=== PATIENT | male | born 1950 | race Caucasian/White ===

== ENCOUNTER → 2017-10-29 | Outpatient (CLI) | payer MEDICARE ==
[~2017-10-29] MED LIST: LEVO88TA45 PO; OMEP-137 PO
== END ==
LOC: LAB 08:59
PROVIDERS: ATTEND Internal Medicine Cardiovascular Disease
DX: I50.23 Acute on chronic systolic (congestive) heart failure (principal)
CPT/HCPCS: 36415; 82310; 82374; 82435; 82565; 82947; 84132; 84295; 84520

== ENCOUNTER → 2018-01-25 | Outpatient (CLI) | payer MEDICARE ==
[2018-01-25 09:47] LABS: INR 4.04
== END ==
LOC: LAB 09:11
PROVIDERS: ATTEND Internal Medicine Interventional Cardiology
DX: I48.91 Unspecified atrial fibrillation (principal)
CPT/HCPCS: 36415; 85610

== ENCOUNTER → 2018-02-06 | Outpatient (CLI) | payer MEDICARE ==
[2018-02-06 08:59] LABS: INR 2.88
== END ==
LOC: LAB 08:36
PROVIDERS: ATTEND Internal Medicine Interventional Cardiology
DX: I48.91 Unspecified atrial fibrillation (principal); Z79.01 Long term (current) use of anticoagulants
CPT/HCPCS: 36415; 85610

== ENCOUNTER → 2018-02-15 | Outpatient (CLI) | payer MEDICARE ==
[2018-02-15 10:34] LABS: INR 2.48
== END ==
LOC: LAB 10:10
PROVIDERS: ATTEND Internal Medicine Interventional Cardiology
DX: I48.91 Unspecified atrial fibrillation (principal)
CPT/HCPCS: 36415; 85610

== ENCOUNTER → 2018-03-18 | Outpatient (CLI) | payer MEDICARE ==
[2018-03-18 09:44] LABS: INR 3.18
== END ==
LOC: LAB 09:17
PROVIDERS: ATTEND Internal Medicine Interventional Cardiology
DX: Z51.81 Encounter for therapeutic drug level monitoring (principal); Z79.01 Long term (current) use of anticoagulants; I48.91 Unspecified atrial fibrillation
CPT/HCPCS: 36415; 85610

== ENCOUNTER → 2018-08-16 | Outpatient (CLI) | payer MEDICARE | LOC: LAB 12:32 | PROVIDERS: ATTEND Internal Medicine Cardiovascular Disease | DX: I50.23 Acute on chronic systolic (congestive) heart failure (principal); I25.10 Atherosclerotic heart disease of native coronary artery without angina pectoris | CPT/HCPCS: 36415; 82310; 82374; 82435; 82465; 82565; 82947; 83718; 84132; 84295; 84478; 84520 ==

== ENCOUNTER → 2018-08-20 | Outpatient (REF) | payer MEDICARE ==
[2018-08-20 12:00] LABS: PLATELET COUNT, AUTOMATED 222 K/uL (150-450)
== END ==
LOC: ZZSTITCHES 11:43
PROVIDERS: ATTEND Physician Assistant
DX: R11.2 Nausea with vomiting, unspecified (principal); R10.84 Generalized abdominal pain
CPT/HCPCS: 82040; 82247; 82310; 82374; 82435; 82565; 82947; 84075; 84132; 84155; 84295; 84450; 84460; 84520; 85025

== ENCOUNTER 2018-08-22 10:16 | Inpatient (IN) | payer MEDICARE ==
[~2018-08-22] VITALS: Ht 175.3 cm; Wt 73.0 kg
--- NOTE | 2018-08-22 10:20 | ER Report ---
History and Physical Time Seen By MD: 10:17 HPI/ROS CHIEF COMPLAINT: Weakness, shortness breath HISTORY OF PRESENT ILLNESS: Patient is a 68-year-old male here with complaints of weakness, shortness of breath which she reports has been present for several years. Patient also complains of having intermittent hallucinations, intermittent abdominal pain, intermittent nausea, decreased appetite. Patient reports that his symptoms have not changed for several years including this morning. He does report that he is fed up with his current symptoms which prompted evaluation today. Patient is afebrile, hemodynamically stable at time of evaluation. REVIEW OF SYSTEMS: Constitutional: No fever, no chills. Eyes: No discharge. ENT: No sore throat. Cardiovascular: No chest pain, no palpitations. Respiratory: + cough, + shortness of breath. Gastrointestinal: + intermittent abdominal pain, + vomiting, + nausea Genitourinary: No hematuria. Musculoskeletal: No back pain. Skin: No rashes. Neurological: No headache. + generalized weakness Allergies: Coded Allergies: Penicillins (Verified Allergy, Severe, SWELLING, 10/09/16) codeine (Verified Allergy, Intermediate, HALLUCINATIONS, 10/09/16) Home Meds Reported Medications Metoprolol Tartrate (METOPROLOL TARTRATE) 25 Mg Tablet, 12.5 MG PO BID, TAB 08/22/18 Aspirin (ASPIR 81) 81 Mg Tablet.dr, 81 MG PO QDAY, TAB 08/22/18 Warfarin Sodium (WARFARIN SODIUM) 5 Mg Tablet, 2.5 MG PO DIRECTED, TAB 08/22/18 Warfarin Sodium (WARFARIN SODIUM) 5 Mg Tablet, 5 MG PO DIRECTED, TAB 08/22/18 Rosuvastatin Calcium (CRESTOR) 20 Mg Tablet, 20 MG PO QDAY 08/22/18 Ondansetron 4 Mg Odt (ONDANSETRON 4 MG ODT) 4 Mg Tab.rapdis, 4 MG ASDIRECTED PRN 08/22/18 Clopidogrel Bisulfate (CLOPIDOGREL) 75 Mg Tablet, 75 MG PO QDAY 08/22/18 Furosemide (FUROSEMIDE) 20 Mg Tablet, 20 MG PO QDAY 08/22/18 Levothyroxine Sodium (LEVOTHYROXINE SODIUM) 88 Mcg Tablet, 88 MCG PO QDAY 08/22/18 Discontinued Reported Medications Levothyroxine Sodium (LEVOTHYROXINE SODIUM) 100 Mcg Tablet, 88 MCG PO QDAY, TAB 08/22/18 Hx Smoking: No Smoking Status: Never Smoker Hx Substance Use Disorder: No Constitutional Vital Sign - Last 24 Hours 08/22/18 08/22/18 08/22/18 08/22/18 10:16 10:20 10:28 10:30 Temp 97.6 Pulse 79 83 Resp 22 13 B/P (MAP) 120/80 (93) 120/80 106/62 (77) Pulse Ox 85 88 O2 Delivery Room Air 08/22/18 08/22/18 08/22/18 08/22/18 10:46 11:00 11:51 12:00 Pulse 77 44 Resp 22 B/P (MAP) 100/73 (82) 113/71 (85) Pulse Ox 96 O2 Delivery Nasal Cannula Nasal Cannula O2 Flow Rate 2 2 Physical Exam General Appearance: The patient is alert, has no immediate need for airway protection and no signs of toxicity. Uncomfortable appearing Eyes: Pupils equal and round no pallor or injection. ENT, Mouth: Mucous membranes are moist. Respiratory: There are no retractions, lungs are clear to auscultation. Cardiovascular: Regular rate and rhythm. Gastrointestinal: Abdomen is soft and non tender, no masses, bowel sounds normal. Neurological: No focal neuro deficits Skin: Warm and dry, no rashes. Musculoskeletal: Neck is supple non tender. Extremities are nontender, nonswollen and have full range of motion. DIFFERENTIAL DIAGNOSIS: After history and physical exam differential diagnosis was considered for chest pain including but not limited to myocardial ischemia, pericarditis pulmonary embolus, chest wall pain, pleural inflammation and pulmonary infectious causes. Medical Decision Making Data Points Result Diagram: 08/22/18 1028 08/22/18 1028 Laboratory Hematology Test 08/22/18 10:28 White Blood Count 6.9 k/uL (4.5-11.0) Red Blood Count 4.01 M/uL (4.00-5.60) Hemoglobin 12.3 g/dL (14.0-18.0) L Hematocrit 37.3 % (42.0-52.0) L Mean Corpuscular Volume 93.0 fL (80.0-96.0) Mean Corpuscular Hemoglobin 30.6 pg (26.0-33.0) Mean Corpuscular Hemoglobin Concent 32.9 g/dL (32.0-36.0) Red Cell Distribution Width 16.8 % (11.5-14.5) H Platelet Count 207 K/uL (150-450) Mean Platelet Volume 10.2 fL (7.2-11.1) Neutrophils (%) (Auto) 79.2 % (39.4-72.5) H Lymphocytes (%) (Auto) 11.2 % (17.6-49.6) L Monocytes (%) (Auto) 9.1 % (4.1-12.4) Eosinophils (%) (Auto) 0.1 % (0.4-6.7) L Basophils (%) (Auto) 0.4 % (0.3-1.4) Nucleated RBC Relative Count (auto) 0.1 /100WBC Neutrophils # (Auto) 5.5 K/uL (2.0-7.4) Lymphocytes # (Auto) 0.8 K/uL (1.3-3.6) L Monocytes # (Auto) 0.6 K/uL (0.3-1.0) Eosinophils # (Auto) 0.0 K/uL (0.0-0.5) Basophils # (Auto) 0.0 K/uL (0.0-0.1) Nucleated RBC Absolute Count (auto) 0.01 K/uL Chemistry Test 08/22/18 00:00 08/22/18 10:28 Sodium Level 130 mmol/L (137-145) Potassium Level 4.6 mmol/L (3.5-5.0) Chloride Level 96 mmol/L (98-107) Carbon Dioxide Level 18 mmol/L (22-30) Blood Urea Nitrogen 35 mg/dl (9-21) Creatinine 2.00 mg/dl (0.66-1.25) Glomerular Filtration Rate Calc 33.3 Random Glucose 111 mg/dl (75-110) Lactate 4.2 mmol/L (0.7-2.1) Calcium Level 9.2 mg/dl (8.4-10.2) Total Bilirubin 6.0 mg/dl (0.2-1.3) Aspartate Amino Transf (AST/SGOT) > 750 U/L (0-35) Alanine Aminotransferase (ALT/SGPT) 944 U/L (0-56) Alkaline Phosphatase 80 U/L (0-126) Ammonia < 9 UMOL/L (9-33) Troponin I 0.086 ng/ml B-Type Natriuretic Peptide 1850 pg/ml (0-100) Total Protein 6.2 g/dl (6.3-8.2) Albumin 3.6 g/dl (3.5-5.0) Lipase 59 U/L (23-300) Thyroid Stimulating Hormone (TSH) 8.75 uIU/ml (0.46-4.68) Serology Test 08/22/18 10:28 Coagulation Test 08/22/18 10:28 Prothrombin Time 54.6 seconds (12.0-14.4) Prothromb Time International Ratio 5.89 Activated Partial Thromboplast Time 56 seconds (23-35) EKG/Imaging Imaging CT ABDOMEN PELVIS W/O CON HISTORY: abd pain TECHNIQUE: Axial images acquired through the abdomen/pelvis. Coronal and sagittal reformatting also performed. No IV contrast administered. One of the following dose optimization techniques was utilized in the performance of this exam: Automated exposure control; adjustment of the mA and/or kV according to the patient's size; or use of an iterative reconstruction technique. Specific details can be referenced in the facility's radiology CT exam operational policy. COMPARISON: Comparison CTA chest 10/09/2016 FINDINGS: Visualized lung bases: Negative. Hepatobiliary: Normal liver. There is either high density sludge or a large 2.5 cm stone filling the lumen of the gallbladder. Gallbladder wall is thickened measuring 7 mm diameter. No evidence of ductal dilatation. Spleen: Negative. Adrenals: Negative. Pancreas: Negative. Kidneys ureters and bladder: Negative. Genitalia: Negative. GI: There is mild sigmoid diverticulosis without evidence of inflammation. Vessels/spaces/nodes: Interval development of a small amount of ascites layering dependently in the pelvis and layering over the liver. Bones/soft tissues: Evidence of previous orthopedic reduction of a Right hip fracture with several large cancellous bone screws through the right femoral neck and head. Osseous structures otherwise unremarkable for age. Additional findings: Interval enlargement of the heart since the previous study. IMPRESSION: Findings concerning for cholecystitis with thickened gallbladder wall and either sludge or large stone filling the gallbladder lumen. Suggest follow up ultr asound. Interval development of a small amount of ascites. This might be related to heart failure as there is interval: Enlargement of the heart since the previous exam. Correlate clinically. Sigmoid diverticulosis without evidence of inflammation. PATIENT NAME: Franklin Christina : 1950 MR: [id number] V: [id number] EXAM DATE: ORDERING PHYSICIAN: DAI BALDWIN TECHNOLOGIST: Location: [facility] Patient: Franklin Christina : 1950 Visit/Account:[id number] Date of Sevice: 08/22/[address] scan without contrast COMPARISONS: None ADDITIONAL PERTINENT HISTORY: Altered mental status TECHNIQUE: Multiple axial images were obtained from the skull base to the vertex without IV contrast. One of the following dose optimization techniques was utilized in the performance of this exam: Automated exposure control; adjustment of the mA and/or kV according to the patient's size; or use of an iterative reconstruction technique. Specific details can be referenced in the facility's radiology CT exam operational policy. FINDINGS: Midline shift: Negative Ventricles: Negative Brain parenchyma: Patchy hypoattenuation within the periventricular and subcortical white matter, nonspecific but likely representing small vessel ischemic change on a chronic basis. No intraparenchymal hemorrhage or mass effe ct Extra-axial spaces: Moderate cerebral atrophy. Intracranial vasculature: Cavernous internal carotid and distal vertebral artery calcifications. Otherwise negative Osseous structures: Negative Paranasal sinuses and mastoid air cells: Negative Surrounding soft tissues and orbits: Negative IMPRESSION: 1. Age related changes as described above. 2. No evidence of acute intracranial pathology. PATIENT NAME: Franklin Christina : 1950 MR: [id number] V: [id number] EXAM DATE: ORDERING PHYSICIAN: DAI BALDWIN TECHNOLOGIST: Location: [facility] Patient: Franklin Christina : 1950 Visit/Account:[id number] Date of Sevice: 08/22/2018 CHEST PA LAT INDICATION: Chest Pain COMPARISON: 24/05/2016 FINDINGS: Cardiac silhouette is upper limits of normal. Battery generator is noted over the left medial chest wall There is no focal infiltrate or lobar consolidation. There is no pneumothorax or pleural effusion. IMPRESSION: 1. No acute cardiopulmonary process. ED Course/Re-evaluation ED Course Patient is a 68-year-old male here with complaints of generalized weakness, nausea, dry heaving, intermittent abdominal pain, intermittent shortness breath, intermittent cough which have been present for several years. Upon further questioning, especially when the patient's is present, patient's primary complaint is right upper abdominal pain, nausea, decreased appetite. Patient is currently being treated with Lasix and was found to have acute kidney injury s uspected be prerenal in etiology. CT imaging of the head was completed to rule out intracranial pathology and was found to be negative especially in the setting of a supratherapeutic INR on warfarin and Plavix. Patient is exquisitely tender in the right upper quadrant of the abdomen, CT imaging of the abdomen and pelvis was completed and was concerning for cholecystitis. Chest x-ray showed no acute findings. Right upper quadrant ultrasound was completed and identified a thickened gallbladder wall, pericholecystic fluid and stones consistent with acute cholecystitis especially with elevated bilirubin, elevated lactate. Common bile duct was not dilated on ultrasound imaging. Patient does have a transaminitis which is markedly elevated of unclear etiology. Patient does have an elevated BNP consistent with patient's history of heart failure on Lasix. Patient was given 400 mL of normal saline due to clinical signs of significant dehydration. Blood cultures pending. I discussed the patient with Dr. Aguilera who accepted the patient to his service for further treatment and care. Patient was stable at time of admission. Decision to Disposition Date: Aug 22, 2018 Decision to Disposition Time: 12:50 Depart Departure Latest Vital Signs Vital Signs Date Time Temp Pulse Resp B/P (MAP) Pulse Ox O2 Delivery O2 Flow Rate FiO2 08/22/18 12:00 113/71 (85) 08/22/18 11:51 44 96 Nasal Cannula 2 08/22/18 10:46 22 08/22/18 10:28 97.6 Impression: Primary Impression: Cholecystitis Additional Impressions: Transaminitis Acute kidney injury Condition: Condition Unchanged Disposition: Admitted from ER Referrals: RONNA WILEY MD (PCP) Problem Qualifiers DAI BALDWIN DO Aug 22, 2018 10:20
[2018-08-22] MEDS ORDERED: NS(*) 0.9% 1000 ML BAG 1,000 ML IV ONE (10:32)
[2018-08-22] MEDS ORDERED: ONDANSETRON 4 MG/2 ML VIAL IVP ONE (10:35)
[2018-08-22] MEDS ORDERED: ONDA4TAB9 ASDIRECTED (10:39)
[2018-08-22] MEDS ORDERED: CLOP75TA PO (10:39)
[2018-08-22] MEDS ORDERED: ROSU20TA24 PO (10:39)
[2018-08-22] MEDS ORDERED: LEVO88TA45 PO (10:39)
[2018-08-22] MEDS ORDERED: LEVO-3 PO (10:39)
[2018-08-22] MEDS ORDERED: FURO-45 PO (10:39)
[2018-08-22] MEDS ORDERED: WARF5TAB23 PO ×2 (10:42)
[2018-08-22 10:45] LABS: PLATELET COUNT, AUTOMATED 207 K/uL (150-450)
[2018-08-22 11:01] LABS: INR 5.89
--- NOTE | 2018-08-22 11:11 | RADIOLOGY IMAGING REPORT ---
[place] [facility] [place] NAME: Franklin Christina : 1950 MR: [id number] V: [id number] EXAM DATE: ORDERING PHYSICIAN: DAI BALDWIN TECHNOLOGIST: Location: Patient: Franklin Christina : 1950 Visit/Account:[id number] Date of Sevice: 08/22/2018 CHEST PA LAT INDICATION: Chest Pain COMPARISON: 24/05/2016 FINDINGS: Cardiac silhouette is upper limits of normal. Battery generator is noted over the left medial chest wall There is no focal infiltrate or lobar consolidation. There is no pneumothorax or pleural effusion. IMPRESSION: 1. No acute cardiopulmonary process. Report Dictated By: Nilson Lobo at 08/22/2018 11:02 AM Report E-Signed By: Nilson Lobo at 08/22/2018 11:04 AM WSN:[id number]
[2018-08-22] MEDS ORDERED: ASPI-1471 PO (11:31)
[2018-08-22] MEDS ORDERED: METO25TA93 PO (11:32)
[2018-08-22] MEDS ORDERED: fentaNYL CITR 100 MCG/2 ML AMP IVP ONE (12:00)
--- NOTE | 2018-08-22 12:02 | RADIOLOGY IMAGING REPORT ---
FACILITY: [facility] PATIENT NAME: Franklin Christina : 1950 MR: [id number] V: [id number] EXAM DATE: ORDERING PHYSICIAN: DAI BALDWIN TECHNOLOGIST: Location: [facility] Patient: Franklin Christina : 1950 Visit/Account:[id number] Date of Sevice: 08/22/[address] scan without contrast COMPARISONS: None ADDITIONAL PERTINENT HISTORY: Altered mental status TECHNIQUE: Multiple axial images were obtained from the skull base to the vertex without IV contrast . One of the following dose optimization techniques was utilized in the performance of this exam: Aut omated exposure control; adjustment of the mA and/or kV according to the patient's size; or use of an iterative reconstruction technique. Specific details can be referenced in the facility's radiology CT exam operational policy. FINDINGS: Midline shift: Negative Ventricles: Negative Brain parenchyma: Patchy hypoattenuation within the periventricular and subcortical white matter, no nspecific but likely representing small vessel ischemic change on a chronic basis. No intraparenchym al hemorrhage or mass effect Extra-axial spaces: Moderate cerebral atrophy. Intracranial vasculature: Cavernous internal carotid and distal vertebral artery calcifications. Ot herwise negative Osseous structures: Negative Paranasal sinuses and mastoid air cells: Negative Surrounding soft tissues and orbits: Negative IMPRESSION: 1. Age related changes as described above. 2. No evidence of acute intracranial pathology. Report Dictated By: Bay Chang MD at 08/22/2018 11:52 AM Report E-Signed By: Bay Chang MD at 08/22/2018 11:55 AM WSN:[id number]
--- NOTE | 2018-08-22 12:17 | RADIOLOGY IMAGING REPORT ---
FACILITY: [facility] PATIENT NAME: Franklin Christina : 1950 MR: [id number] V: [id number] EXAM DATE: ORDERING PHYSICIAN: DAI BALDWIN TECHNOLOGIST: Location: [facility] [place] Patient: Franklin Christina : 1950 Visit/Account:[id number] Date of Sevice: 08/22/2018 CT ABDOMEN PELVIS W/O CON HISTORY: abd pain TECHNIQUE: Axial images acquired through the abdomen/pelvis. Coronal and sagittal reformatting also performed. No IV contrast administered. One of the following dose optimization techniques was utili zed in the performance of this exam: Automated exposure control; adjustment of the mA and/or kV accor ding to the patient's size; or use of an iterative reconstruction technique. Specific details can b e referenced in the facility's radiology CT exam operational policy. COMPARISON: Comparison CTA chest 10/09/2016 FINDINGS: Visualized lung bases: Negative. Hepatobiliary: Normal liver. There is either high density sludge or a large 2.5 cm stone filling the lumen of the gallbladder. Gallbladder wall is thickened measuring 7 mm diameter. No evidence of duct al dilatation. Spleen: Negative. Adrenals: Negative. Pancreas: Negative. Kidneys ureters and bladder: Negative. Genitalia: Negative. GI: There is mild sigmoid diverticulosis without evidence of inflammation. Vessels/spaces/nodes: Interval development of a small amount of ascites layering dependently in the pelvis and layering over the liver. Bones/soft tissues: Evidence of previous orthopedic reduction of a Right hip fracture with several l arge cancellous bone screws through the right femoral neck and head. Osseous structures otherwise unr emarkable for age. Additional findings: Interval enlargement of the heart since the previous study. IMPRESSION: Findings concerning for cholecystitis with thickened gallbladder wall and either sludge or large ston e filling the gallbladder lumen. Suggest follow up ultrasound. Interval development of a small amount of ascites. This might be related to heart failure as there is interval: Enlargement of the heart since the previous exam. Correlate clinically. Sigmoid diverticulosis without evidence of inflammation. Report Dictated By: Parker Barker MD at 08/22/2018 12:01 PM Report E-Signed By: Parker Barker MD at 08/22/2018 12:09 PM WSN:[id number]
--- NOTE | 2018-08-22 12:47 | EKG ---
FACILITY: [facility] [place] PATIENT NAME: REHAN SÁNCHEZ : [id number] MR: [id number] V: [id number] EXAM DATE: ORDERING PHYSICIAN: DAI BALDWIN TECHNOLOGIST: Test Reason : weakness Blood Pressure : / mmHG Vent. Rate : 086 BPM Atrial Rate : 086 BPM P-R Int : 164 ms QRS Dur : 116 ms QT Int : 398 ms P-R-T Axes : 067 -84 073 degrees QTc Int : 476 ms Sinus rhythm with bigeminal PVC Left axis deviation Nonspecific ST and T wave abnormality Prolonged QT Abnormal ECG When compared with ECG of 09-OCT-2016 07:23, LBBB is no longer present PVC now occuring in bigeminy Confirmed by Delbert Abdullahi ([id number]) on 08/22/2018 4:03:08 PM Referred By: Confirmed By:Delbert Pinto
[2018-08-22] MEDS ORDERED: PANTOPRAZOLE SOD 40 MG TABEC PO ONE (12:55)
[2018-08-22] MEDS ORDERED: HYDROmorphone HCL 2 MG/ML SDV IVP PRN (12:55)
[2018-08-22] MEDS ORDERED: NALOXONE HCL 0.4 MG/ML VIAL IVP PRN (12:55)
[2018-08-22] MEDS ORDERED: FLUSH 10 ML SYR IVP PRN (12:55)
[2018-08-22] MEDS ORDERED: ONDANSETRON 4 MG/2 ML VIAL IVP PRN ×2 (12:55→13:30)
[2018-08-22] MEDS ORDERED: LEVOFLOXACIN/D5W*500 MG/100 ML 100 ML IVPB ONE ×2 (13:16→13:30)
--- NOTE | 2018-08-22 13:32 | RADIOLOGY IMAGING REPORT ---
FACILITY: [facility] [place] PATIENT NAME: Franklin Christina : 1950 MR: [id number] V: [id number] EXAM DATE: ORDERING PHYSICIAN: DAI BALDWIN TECHNOLOGIST: Location: [facility] [place] Patient: Franklin Christina : 1950 Visit/Account:[id number] Date of Sevice: 08/22/2018 EXAMINATION: Limited right upper quadrant ultrasound Additional Pertinent history: Right upper quadrant pain. Jaundice. Increased bilirubin. COMPARISON STUDIES: CT abdomen and pelvis done earlier in the day. FINDINGS: Gallbladder: Multiple stones without sludge. Significant edematous wall thickening measuring up to 9 mm. No discrete pericholecystic fluid. Positive ultrasound Ryan sign. Liver: Normal size and echotexture. Minimal lobulations. No focal abnormality. Portal vein is patent. Mild ascites. Common duct: normal 2.8 mm. Pancreas: Portion the pancreas visualized within normal limits. Right kidney: Right kidney shows no focal abnormality. However the resistive index appears to be mild ly elevated 1.0. Proximal IVC/Aorta: negative IMPRESSION: 1. Abnormal gallbladder with stones and significant edematous wall thickening. The patient was tender . These findings could correlate to acute cholecystitis. 2. Common bile duct is normal. The liver shows no focal normality. 3. The right kidney shows no focal normality. The resistive index is mildly elevated at 1.0. Cause is not identified on this exam. Report Dictated By: Franklin Krueger at 08/22/2018 1:20 PM Report E-Signed By: Franklin Krueger at 08/22/2018 1:25 PM WSN:[id number]
[2018-08-22 13:57] VITALS: BP 99/55
[2018-08-22] MEDS: metroNIDAZOLE* 500MG/100ML BAG 100 ML IVPB SCH ×2 (15:42→23:01)
[2018-08-22] MEDS ORDERED: PHYTONADIONE 5 MG TAB PO ONE (16:45)
[2018-08-22 18:06] VITALS: BP 102/72
[2018-08-22 18:44] VITALS: BP 96/65
[2018-08-22] MEDS: NS(*) 0.9% 1000 ML BAG 1,000 ML IV PRN (18:51)
--- NOTE | 2018-08-22 20:09 | Hospitalist Consultation ---
History of Present Illness Requesting Physician Dr Lenz Reason for Consult Medical management of comorbidities, preoperative risk stratification. Chief Complaint RUQ pain History of Present Illness 68M presented with RUQ abdominal pain. PMHx significant for CAD, AL, FIORDALIZA , HFrEF 20%, CKD, atrial fibrillation. Reports abdominal pain which worsened today and he elected to come in to find out what was wrong. Work up in ER demonstrated elevated LFT, gall stone on CT with ascites near liver. Patient is poor historian and provided most information. ECHO was obtained showing low EF, then reported he has had 20% EF for over a year since AL 2016. Refused life vest at that time and stopped following with cardiology. History Problems: (1) Afib Status: Chronic (2) HFrEF (heart failure with reduced ejection fraction) Status: Chronic (3) CKD (chronic kidney disease) Status: Chronic (4) AL (myocardial infarction) Status: Resolved (5) CAD (coronary artery disease) Status: Chronic Home Meds Reported Medications Metoprolol Tartrate (METOPROLOL TARTRATE) 25 Mg Tablet, 12.5 MG PO BID, TAB 08/22/18 Aspirin (ASPIR 81) 81 Mg Tablet.dr, 81 MG PO QDAY, TAB 08/22/18 Warfarin Sodium (WARFARIN SODIUM) 5 Mg Tablet, 2.5 MG PO ,,,,, TAB 08/22/18 Warfarin Sodium (WARFARIN SODIUM) 5 Mg Tablet, 5 MG PO Mon, Sun, TAB 08/22/18 Rosuvastatin Calcium (CRESTOR) 20 Mg Tablet, 20 MG PO QDAY 08/22/18 Ondansetron 4 Mg Odt (ONDANSETRON 4 MG ODT) 4 Mg Tab.rapdis, 4 MG ASDIRECTED PRN 08/22/18 Clopidogrel Bisulfate (CLOPIDOGREL) 75 Mg Tablet, 75 MG PO QDAY 08/22/18 Furosemide (FUROSEMIDE) 20 Mg Tablet, 20 MG PO QDAY 08/22/18 Levothyroxine Sodium (LEVOTHYROXINE SODIUM) 88 Mcg Tablet, 88 MCG PO QDAY 08/22/18 Discontinued Reported Medications Levothyroxine Sodium (LEVOTHYROXINE SODIUM) 100 Mcg Tablet, 88 MCG PO QDAY, TAB 08/22/18 Allergies: Coded Allergies: Penicillins (Verified Allergy, Severe, SWELLING, 10/09/16) codeine (Verified Allergy, Intermediate, HALLUCINATIONS, 10/09/16) Patient History: FH: myocardial infarction BROTHER OR SISTER FH: throat cancer MOTHER Hx Smoking: No Smoking Status: Former Smoker Hx Alcohol Use: No Hx Substance Use Disorder: No Review of Systems All Systems Reviewed/Normal: Yes, Except as Noted Cardiovascular: No Chest Pain Respiratory: No Shortness of Breath, No Cough Gastrointestinal: No Nausea, No Vomiting; Abdominal Pain Exam Vital Signs Vital Signs Date Time Temp Pulse Resp B/P (MAP) Pulse Ox O2 Delivery O2 Flow Rate FiO2 08/22/18 18:44 96/65 (75) 08/22/18 17:45 70 08/22/18 14:30 99 Nasal Cannula 2.0 08/22/18 13:57 97.6 20 General Appearance: Alert, Awake, No Acute Distress, Afebrile (chronically ill appearing) Neuro: No Gross deficits Cardiovascular: Normal Rhythm & Peripheral Pulses, Other Respiratory: No Respiratory Distress (crackles b/l) GI: Other (RUQ tenderness) Extremities: Soft and Non Tender, Warm, Pulses, Perfused; No Edema Medical Decision Making Data Points Result Diagram: 08/22/18 1028 08/22/18 1028 EKG / Imaging EKG Interpretation sinus rhythm with bigeminal PVC Assessment and Plan Problems: (1) Cholecystitis Status: Acute Assessment & Plan: Management per surgery. Patient is high risk surgical candidate given recent ACS with stenting, severe HFrEF, CKD. He would be better served at a facility with subspecialty support given the increased risk of complications. (2) Transaminitis Status: Acute Assessment & Plan: Secondary to cholecystitis. (3) HFrEF (heart failure with reduced ejection fraction) Status: Chronic Assessment & Plan: EF reportedly 20% in 2017, ECHO pending but appears to co rrelate. No evidence of exacerbation, appears stable clinically. Limit fluids as able after volume resuscitation achieved. He should be evaluated for ICD given increased risk of arrhythmia. (4) Afib Status: Chronic Assessment & Plan: On chronic warfarin, he was supratherapeutic and given 5mg PO vitamin K. Recheck INR in am, bridging with LMWH is not necessary for atrial fibrillation. (5) CKD (chronic kidney disease) Status: Chronic Assessment & Plan: Basleine Cr appears to be 1.3, slightly increased on admission. Cautious IV fluids given poor EF. (6) AL (myocardial infarction) Status: Resolved Assessment & Plan: on DAP, continue. Will need to be maintained on Plavix at minimum perioperatively. (7) CAD (coronary artery disease) Status: Chronic Assessment & Plan: Multiple stents last FIORDALIZA . Continue metoprolol, Plavix, ASA. Venous Thromboembolism Antithrombotics Is Pt On Any Antithrombotics?: Yes Exam Sepsis Risk: No Definite Risk CONNER SASKIA GALINDO DO Aug 22, 2018 20:09
[2018-08-22 20:21] VITALS: BP 99/65
[2018-08-22] MEDS: METOPROLOL TART 50 MG TAB PO SCH (21:00)
--- NOTE | 2018-08-22 21:51 | Gen Surgery History & Physical ---
History of Present Illness Chief Complaint Abdominal pain History of Present Illness 68yo male, poor historian, presents to the ER with several days of abdominal pain. Unable to obtain much more history than this from him. His is appar ently a better historian but she is not present during my evaluation. CT suspicious for cholecystitis as is U/S. He has severe CAD and CHF. Found out only after I accepted him for admission is that he had a drug-eluting stent placed 10 months ago. In the ER, he was found to have elevated LFTs including T bili of 6 but transaminases are elevated to the 6-700 range. History Problems: (1) CAD (coronary artery disease) Status: Chronic (2) WV (myocardial infarction) Status: Resolved (3) CKD (chronic kidney disease) Status: Chronic (4) Afib Status: Chronic (5) HFrEF (heart failure with reduced ejection fraction) Status: Chronic Home Meds Reported Medications Metoprolol Tartrate (METOPROLOL TARTRATE) 25 Mg Tablet, 12.5 MG PO BID, TAB 08/22/18 Aspirin (ASPIR 81) 81 Mg Tablet.dr, 81 MG PO QDAY, TAB 08/22/18 Warfarin Sodium (WARFARIN SODIUM) 5 Mg Tablet, 2.5 MG PO ,,,,Sa, TAB 08/22/18 Warfarin Sodium (WARFARIN SODIUM) 5 Mg Tablet, 5 MG PO Sun, Sun, TAB 08/22/18 Rosuvastatin Calcium (CRESTOR) 20 Mg Tablet, 20 MG PO QDAY 08/22/18 Ondansetron 4 Mg Odt (ONDANSETRON 4 MG ODT) 4 Mg Tab.rapdis, 4 MG ASDIRECTED PRN 08/22/18 Clopidogrel Bisulfate (CLOPIDOGREL) 75 Mg Tablet, 75 MG PO QDAY 08/22/18 Furosemide (FUROSEMIDE) 20 Mg Tablet, 20 MG PO QDAY 08/22/18 Levothyroxine Sodium (LEVOTHYROXINE SODIUM) 88 Mcg Tablet, 88 MCG PO QDAY 08/22/18 Discontinued Reported Medications Levothyroxine Sodium (LEVOTHYROXINE SODIUM) 100 Mcg Tablet, 88 MCG PO QDAY, TAB 08/22/18 Allergies: Coded Allergies: Penicillins (Verified Allergy, Severe, SWELLING, 10/09/16) codeine (Verified Allergy, Intermediate, HALLUCINATIONS, 10/09/16) Patient History: FH: myocardial infarction BROTHER OR SISTER FH: throat cancer MOTHER Review of Systems All Systems Reviewed/Normal: Yes, Except as Noted Gastrointestinal: Abdominal Pain Exam General Appearance: Alert, Awake, No Acute Distress, Afebrile Neuro: No Gross deficits Eyes: PERRLA GI: Other (Soft, RUQ TTP) Extremities: Warm, Perfused Psych: Alert & Oriented X3, Appropriate Mood & Affect Medical Decision Making Data Points Result Diagram: 08/22/18 1028 08/22/18 1028 Assessment and Plan Problems: (1) Cholecystitis Status: Acute Assessment & Plan: 08/22/18: Admit, NPO, IV fluids, will start IV abx. Based on new information obtained after admission regarding his cardiac status (coronary stent 10 mos ago, cardiac EF 20%) he would be best served with transfer in the morning for multidisciplinary care regarding his heart and he will likely need ERCP as well given his LFTs. Cholecystectomy is significant risk in this patient due to his cardiac comorbidities which subject him to perioperative risks of WV or worsening heart failure and even . It may be that attempt at non-operative management of his gallbladder infection precede any proposed surgical intervention. If surgery is attempted, he will certainly need intensive cardiac monitoring, possibly even RADHA during surgery and ready access to a labor relations analyst should be available. Will see how he does overnight and will recheck his labs, including LFTs in the morning but will coordinate transfer in the morning. (2) Transaminitis Status: Acute Assessment & Plan: Recheck in the morning. (3) Acute kidney injury Status: Acute Assessment & Plan: Possibly due to dehydration, will follow as we rehydrate him. (4) History of coronary artery disease Status: Acute Assessment & Plan: Coronary stent placed 10 mos ago. Hospitalist recommends continuing Plavix for now. (5) CKD (chronic kidney disease) Status: Chronic Assessment & Plan: Follow kidney function (6) Afib Status: Chronic Assessment & Plan: Hold coumadin for now (7) HFrEF (heart failure with reduced ejection fraction) Status: Chronic Assessment & Plan: High risk for surgery; will need multidisciplinary input to prepare for surgery and likely RADHA monitoring during surgery, if surgery is contemplated. Condition Guarded Time Spent: < 30 min Venous Thromboembolism Antithrombotics Is Pt On Any Antithrombotics?: Yes Problem Qualifiers (1) CKD (chronic kidney disease): Chronic kidney disease stage: stage 2 (mild) Qualified Codes: N18.2 - Chronic kidney disease, stage 2 (mild) (2) Afib: Atrial fibrillation type: chronic Qualified Codes: I48.2 - Chronic atrial fibrillation (3) HFrEF (heart failure with reduced ejection fraction): Heart failure chronicity: chronic Qualified Codes: I50.22 - Chronic systolic (congestive) heart failure RONNA JOHNSON MD Aug 22, 2018 21:51
[2018-08-22 23:06] VITALS: BP 110/80
[2018-08-23 02:24] VITALS: BP 101/77
[2018-08-23] MEDS: NS(*) 0.9% 1000 ML BAG 1,000 ML IV PRN (04:44)
[2018-08-23 05:56] LABS: PLATELET COUNT, AUTOMATED 147 K/uL (150-450)
[2018-08-23] MEDS ORDERED: LEVOTHYROXINE SOD 0.112 MG TAB PO SCH (06:00)
[2018-08-23 06:02] LABS: INR 3.96
[2018-08-23] MEDS: metroNIDAZOLE* 500MG/100ML BAG 100 ML IVPB SCH (06:35)
[2018-08-23 07:38] VITALS: BP 105/74
[2018-08-23] MEDS ORDERED: ASPIRIN 81 MG ENTERIC COATED PO SCH (09:00)
[2018-08-23] MEDS ORDERED: ROSUVASTATIN CALCIUM 10 MG TAB PO SCH (09:00)
[2018-08-23] MEDS ORDERED: CLOPIDOGREL BISULFATE 75MG TAB PO SCH (09:00)
[2018-08-23] MEDS ORDERED: PANTOPRAZOLE SOD 40 MG IV VIAL IVP SCH (09:00)
[2018-08-23] MEDS ORDERED: NS(*) 0.9% 1000 ML BAG 1,000 ML IV PRN (09:19)
--- NOTE | 2018-08-23 09:22 | Short(Outpt) Discharge Summary ---
Discharge Summary Reason for Hosp/Final Diag: (1) Cholecystitis Status: Acute Hospital Course & Plan: 08/22/18: Admit, NPO, IV fluids, will start IV abx. Based on new information obtained after admission regarding his cardiac status (coronary stent 10 mos ago, cardiac EF 20%) he would be best served with transfer in the morning for multidisciplinary care regarding his heart and he will likely need ERCP as well given his LFTs. Cholecystectomy is significant risk in this patient due to his cardiac comorbidities which subject him to perioperative risks of CO or worsening heart failure and even . It may be that attempt at non-operative management of his gallbladder infection precede any proposed surgical intervention. If surgery is attempted, he will certainly need intensive cardiac monitoring, possibly even RADHA during surgery and ready access to a laborer carpentry dock should be available. Will see how he does overnight and will recheck his labs, including LFTs in the morning but will coordinate transfer in the morning. 08/23/18: No events overnight. Bili is coming down but transaminases still elevated. No cardiac events overnight. Will tranfer to [facility] for cardiac evaluation, surgical evaluation, possible perc drainage of gallbladder. (2) Transaminitis Status: Acute Hospital Course & Plan: Recheck in the morning. (3) Acute kidney injury Status: Acute Hospital Course & Plan: Possibly due to dehydration, will follow as we rehydr ate him. (4) History of coronary artery disease Status: Acute Hospital Course & Plan: Coronary stent placed 10 mos ago. Hospitalist recommends continuing Plavix for now. (5) CKD (chronic kidney disease) Status: Chronic Hospital Course & Plan: Follow kidney function (6) Afib Status: Chronic Hospital Course & Plan: Hold coumadin for now (7) HFrEF (heart failure with reduced ejection fraction) Status: Chronic Hospital Course & Plan: High risk for surgery; will need multidisciplinary input to prepare for surgery and likely RADHA monitoring during surgery, if surgery is contemplated. Departure Discharge to: Another Hospital Discharge Instructions Home Meds Reported Medications Metoprolol Tartrate (METOPROLOL TARTRATE) 25 Mg Tablet, 12.5 MG PO BID, TAB 08/22/18 Aspirin (ASPIR 81) 81 Mg Tablet.dr, 81 MG PO QDAY, TAB 08/22/18 Warfarin Sodium (WARFARIN SODIUM) 5 Mg Tablet, 2.5 MG PO Daily,,We,Th,Sa, TAB 08/22/18 Warfarin Sodium (WARFARIN SODIUM) 5 Mg Tablet, 5 MG PO Mon, Fri, TAB 08/22/18 Rosuvastatin Calcium (CRESTOR) 20 Mg Tablet, 20 MG PO QDAY 08/22/18 Ondansetron 4 Mg Odt (ONDANSETRON 4 MG ODT) 4 Mg Tab.rapdis, 4 MG ASDIRECTED PRN 08/22/18 Clopidogrel Bisulfate (CLOPIDOGREL) 75 Mg Tablet, 75 MG PO QDAY 08/22/18 Furosemide (FUROSEMIDE) 20 Mg Tablet, 20 MG PO QDAY 08/22/18 Levothyroxine Sodium (LEVOTHYROXINE SODIUM) 88 Mcg Tablet, 88 MCG PO QDAY 08/22/18 Discontinued Reported Medications Levothyroxine Sodium (LEVOTHYROXINE SODIUM) 100 Mcg Tablet, 88 MCG PO QDAY, TAB 08/22/18 Problem Qualifiers (1) CKD (chronic kidney disease): Chronic kidney disease stage: stage 2 (mild) Qualified Codes: N18.2 - Chronic kidney disease, stage 2 (mild) (2) Afib: Atrial fibrillation type: chronic Qualified Codes: I48.2 - Chronic atrial fibrillation (3) HFrEF (heart failure with reduced ejection fraction): Heart failure chronicity: chronic Qualified Codes: I50.22 - Chronic systolic (congestive) heart failure RONNA JOHNSON MD Aug 23, 2018 09:21
--- NOTE | 2018-08-23 09:38 | Hospitalist Progress Note ---
Subjective Progress Notes Subjective He had no acute events overnight. Physical Exam Vital Signs Date Time Temp Pulse Resp B/P (MAP) Pulse Ox O2 Delivery O2 Flow Rate FiO2 08/23/18 07:38 98.4 68 18 105/74 (84) 99 Nasal Cannula 2.0 Intake and Output 08/23/18 07:03 Intake Total 1300 ml Output Total 880 ml Balance 420 ml Intake Oral 100 ml IV Total 1200 ml Output Urine Total 880 ml General Appearance: Alert, Awake, No Acute Distress Neuro: No Gross deficits Respiratory: No Respiratory Distress Extremities: Warm, Perfused; No Edema Psych: Appropriate Mood & Affect Result Diagram: 08/23/18 0540 08/23/18 0515 Assessment and Plan Problems: (1) Cholecystitis Status: Acute Assessment & Plan: Management per surgery. Patient is high risk surgical candidate given recent ACS with stenting, severe HFrEF, CKD. He would be better served at a facility with subspecialty support given the increased risk of complications. He will be transferred by surgery to [facility]. (2) Transaminitis Status: Acute Assessment & Plan: Secondary to cholecystitis. (3) HFrEF (heart failure with reduced ejection fraction) Status: Chronic Assessment & Plan: EF reportedly 20% in 2017, ECHO pending but appears to correlate. No evidence of exacerbation, appears stable clinically. Limit fluids as able after volume resuscitation achieved. He should be evaluated for ICD given increased risk of arrhythmia. (4) Afib Status: Chronic Assessment & Plan: On chronic warfarin, he was supratherapeutic and given 5mg PO vitamin K. Recheck INR this morning decreased to 3.9. Bridging with LMWH is not necessary for atrial fibrillation. (5) CKD (chronic kidney disease) Status: Chronic Assessment & Plan: Basleine Cr appears to be 1.3, slightly increased on admission. Cautious IV fluids given poor EF. (6) ME (myocardial infarction) Status: Resolved Assessment & Plan: on DAP, continue. Will need to be maintained on Plavix at minimum perioperatively. (7) CAD (coronary artery disease) Status: Chronic Assessment & Plan: Multiple stents last FIORDALIZA . Continue metoprolol, Plavix, ASA. He reports he is a patient of Dr. Toribio. Exam Sepsis Risk: No Definite Risk Problem Qualifiers (1) HFrEF (heart failure with reduced ejection fraction): Heart failure chronicity: chronic Qualified Codes: I50.22 - Chronic systolic (congestive) heart failure (2) Afib: Atrial fibrillation type: chronic Qualified Codes: I48.2 - Chronic atrial fibrillation (3) CKD (chronic kidney disease): Chronic kidney disease stage: stage 2 (mild) Qualified Codes: N18.2 - Chronic kidney disease, stage 2 (mild) TEN REGANP Aug 23, 2018 09:38
[2018-08-23] MEDS: METOPROLOL TART 50 MG TAB PO SCH (10:35)
[2018-08-23 10:36] VITALS: BP 120/82
[2018-08-23] MEDS ORDERED: LEVOFLOXACIN/D5W*500 MG/100 ML 100 ML IVPB SCH (13:30)
[2018-08-23] MEDS ORDERED: NS(*) 0.9% 500 ML BAG 500 ML ONE (13:52)
== END 2018-08-23 16:00 | disposition short-term general hospital (02) | DRG 445 ==
LOC: ER 10:30 → MED 13:06
PROVIDERS: ADMIT Surgery; ATTEND Surgery
DX: K81.0 Acute cholecystitis (principal); N17.9 Acute kidney failure, unspecified; I50.22 Chronic systolic (congestive) heart failure; I25.10 Atherosclerotic heart disease of native coronary artery without angina pectoris; R74.0 Nonspecific elevation of levels of transaminase and lactic acid dehydrogenase [LDH]; N18.2 Chronic kidney disease, stage 2 (mild); Z95.1 Presence of aortocoronary bypass graft; I25.2 Old myocardial infarction; Z79.01 Long term (current) use of anticoagulants
CPT/HCPCS: 36415; 70450; 71046; 74176; 76705; 80074; 82040; 82140; 82247; 82248; 82310; 82374; 82435; 82565; 82803; 82947; 83605; 83690; 83880; 84075; 84132; 84155; 84295; 84443; 84450; 84460; 84484; 84520; 85025; 85610; 85730; 86708; 86709; 86803; 87040; 93005; 93306; 96365; 96375; 99285; C9113; J1170; J1956; J2405; J3010; J3490; J7030; J7040

== ENCOUNTER → 2018-08-23 | Outpatient (CLI) | payer MEDICARE ==
[~2018-08-23] MED LIST changes: +ALBU8.5H IH; +ASPI-1471 PO; +CLOP75TA PO; +FURO-45 PO; +GABA-547; +LEVO-3 PO; +METO25TA93 PO; +ONDA4TAB9 ASDIRECTED; +POTA20PA25 PO; +ROSU20TA24 PO; +WARF5TAB23 PO
== END ==
LOC: AMB 15:38
PROVIDERS: ATTEND Nurse Practitioner
DX: I49.8 Other specified cardiac arrhythmias (principal); I95.9 Hypotension, unspecified
CPT/HCPCS: A0425; A0426; A0888

== ENCOUNTER 2018-09-02 17:27 | Emergency (ER) | payer MEDICARE ==
[~2018-09-02 17:27] MED LIST changes: -ALBU8.5H IH; -GABA-547; -POTA20PA25 PO
--- NOTE | 2018-09-02 17:34 | ER Report ---
History and Physical Time Seen By MD: 17:31 (DAI DOBSON DO) Time Seen By MD: 18:27 (RONNA HINES DO) HPI/ROS CHIEF COMPLAINT: Shortness of breath, recent history of admission for CHF exacerbation HISTORY OF PRESENT ILLNESS: Patient is a 68-year-old male here with complaints of shortness breath, lower extremity edema in the setting of CHF. Patient was recently discharged from [facility] for similar issues. Patient reports being treated with Lasix with progressive dyspnea especially with exertion, wheezing. Patient reports that he stopped smoking in 2017 when he had his last myocardial infarction. Patient is afebrile, hemodynamically stable at time of evaluation maintaining oxygen saturations > 92% on room air. Patient does report having intermittent REVIEW OF SYSTEMS: Constitutional: No fever, no chills. Eyes: No discharge. ENT: No sore throat. Cardiovascular: + chest pain, no palpitations. Respiratory: No cough, + shortness of breath. Gastrointestinal: No abdominal pain, no vomiting. Genitourinary: No hematuria. Musculoskeletal: No back pain. Skin: No rashes. Neurological: No headache. (DAI DOBSON DO) HPI/ROS See Dr. Dobson's note (RONNA HINES DO) Allergies: Coded Allergies: Penicillins (Verified Allergy, Severe, SWELLING, 10/09/16) codeine (Verified Allergy, Intermediate, HALLUCINATIONS, 10/09/16) Home Meds Active Scripts Potassium Chloride (POTASSIUM CHLORIDE) 20 Meq Packet, 20 MEQ PO QDAY for 7 Days, #10 PACKET Prov:RONNA HINES DO 09/02/18 Albuterol Sulfate 90 Mcg/Act (PROAIR HFA 90 MCG/ACT) 8.5 Gm Hfa.aer.ad, 1-2 PUFF IH 3-4XD PRN for SHORTNESS OF BREATH for 28 Days, #1 INHALER 1 Refill Prov:RONNA HINES DO 09/02/18 Reported Medications Gabapentin (GABAPENTIN) 100 Mg Capsule, TID 09/02/18 Metoprolol Tartrate (METOPROLOL TARTRATE) 25 Mg Tablet, 12.5 MG PO BID, TAB 08/22/18 Aspirin (ASPIR 81) 81 Mg Tablet.dr, 81 MG PO QDAY, TAB 08/22/18 Warfarin Sodium (WARFARIN SODIUM) 5 Mg Tablet, 2.5 MG PO Daily,Tu,We,,Sa, TAB 08/22/18 Warfarin Sodium (WARFARIN SODIUM) 5 Mg Tablet, 5 MG PO Mon, Fri, TAB 08/22/18 Rosuvastatin Calcium (CRESTOR) 20 Mg Tablet, 20 MG PO QDAY 08/22/18 Ondansetron 4 Mg Odt (ONDANSETRON 4 MG ODT) 4 Mg Tab.rapdis, 4 MG ASDIRECTED PRN 08/22/18 Clopidogrel Bisulfate (CLOPIDOGREL) 75 Mg Tablet, 75 MG PO QDAY 08/22/18 Furosemide (FUROSEMIDE) 20 Mg Tablet, 20 MG PO QDAY 08/22/18 Levothyroxine Sodium (LEVOTHYROXINE SODIUM) 88 Mcg Tablet, 88 MCG PO QDAY 08/22/18 Hx Smoking: No Smoking Status: Former Smoker Hx Substance Use Disorder: No Hx Alcohol Use: No (DAI DOBSON DO) Constitutional Vital Sign - Last 24 Hours 09/02/18 09/02/18 09/02/18 09/02/18 17:30 17:39 17:45 17:51 Temp 98.0 Pulse 71 69 Resp 20 B/P (MAP) 101/74 (83) 100/74 Pulse Ox 94 95 93 O2 Delivery Room Air Room Air 09/02/18 09/02/18 09/02/18 09/02/18 17:51 18:00 18:15 18:30 Pulse 69 75 67 68 Resp 22 Pulse Ox 94 93 91 09/02/18 09/02/18 09/02/18 09/02/18 18:45 18:57 19:00 19:15 Pulse 69 70 70 B/P (MAP) 103/76 (85) 107/82 (90) Pulse Ox 91 92 85 (RONNA HINES DO) Physical Exam General Appearance: The patient is alert, has no immediate need for airway protection and no signs of toxicity. No acute distress Eyes: Pupils equal and round no pallor or injection. ENT, Mouth: Mucous membranes are moist. Respiratory: Diminished breath sounds at bases, bilateral wheezing in all mireles Cardiovascular: Regular rate and rhythm. Gastrointestinal: Abdomen is soft and non tender, no masses, bowel sounds normal. Neurological: No focal neurological deficit Skin: Warm and dry, no rashes. Musculoskeletal: Neck is supple non tender. Extremities are nontender, nonswollen and have full range of motion. [DIFFERENTIAL DIAGNOSIS: After history and physical exam differential diagnosis was considered for] [ ] (DAI DOBSON DO) Medical Decision Making Data Points Result Diagram: 09/02/18173909/02/18 1740 Laboratory Hematology Test 09/02/18 17:40 White Blood Count 4.8 k/uL (4.5-11.0) Red Blood Count 4.17 M/uL (4.00-5.60) Hemoglobin 12.1 g/dL (14.0-18.0) L Hematocrit 37.8 % (42.0-52.0) L Mean Corpuscular Volume 90.7 fL (80.0-96.0) Mean Corpuscular Hemoglobin 29.0 pg (26.0-33.0) Mean Corpuscular Hemoglobin Concent 32.0 g/dL (32.0-36.0) Red Cell Distribution Width 18.3 % (11.5-14.5) H Platelet Count 183 K/uL (150-450) Mean Platelet Volume 9.4 fL (7.2-11.1) Neutrophils (%) (Auto) 66.9 % (39.4-72.5) Lymphocytes (%) (Auto) 18.6 % (17.6-49.6) Monocytes (%) (Auto) 12.6 % (4.1-12.4) H Eosinophils (%) (Auto) 1.2 % (0.4-6.7) Basophils (%) (Auto) 0.7 % (0.3-1.4) Nucleated RBC Relative Count (auto) 0.1 /100WBC Neutrophils # (Auto) 3.2 K/uL (2.0-7.4) Lymphocytes # (Auto) 0.9 K/uL (1.3-3.6) L Monocytes # (Auto) 0.6 K/uL (0.3-1.0) Eosinophils # (Auto) 0.1 K/uL (0.0-0.5) Basophils # (Auto) 0.0 K/uL (0.0-0.1) Nucleated RBC Absolute Count (auto) 0.01 K/uL Peripheral Blood Smear No Y/N Chemistry Test 09/02/18 17:40 Sodium Level 138 mmol/L (137-145) Potassium Level 3.8 mmol/L (3.5-5.0) Chloride Level 103 mmol/L (98-107) Carbon Dioxide Level 28 mmol/L (22-30) Blood Urea Nitrogen 11 mg/dl (9-21) Creatinine 1.00 mg/dl (0.66-1.25) Glomerular Filtration Rate Calc > 60.0 Random Glucose 87 mg/dl (75-110) Calcium Level 8.7 mg/dl (8.4-10.2) Total Bilirubin 1.5 mg/dl (0.2-1.3) Aspartate Amino Transf (AST/SGOT) 43 U/L (0-35) Alanine Aminotransferase (ALT/SGPT) 179 U/L (0-56) Alkaline Phosphatase 98 U/L (0-126) Troponin I 0.019 ng/ml B-Type Natriuretic Peptide 2160 pg/ml (0-100) Total Protein 6.4 g/dl (6.3-8.2) Albumin 3.3 g/dl (3.5-5.0) Coagulation Test 09/02/18 17:40 Prothrombin Time 20.5 seconds (12.0-14.4) Prothromb Time International Ratio 1.73 Activated Partial Thromboplast Time 38 seconds (23-35) (RONNA HINES DO) EKG/Imaging EKG Interpretation 12 lead EKG: Normal sinus rhythm, ventricular rate 70, QTC 434, no ischemic changes or arrhythmias present. Rhythm: normal sinus rhythm Alexis: normal QRS: normal ST segments: normal (DAI DOBSON DO) EKG Interpretation ECG is shown to have normal sinus rhythm, rate of 70, left axis deviation, left anterior fascicular block pattern, no acute ST segment changes. (RONNA HINES DO) ED Course/Re-evaluation ED Course Patient is a 68-year-old male here with complaints of dyspnea on exertion for the past several days progressive, lower extremity edema and pitting 3+. Patient has a history of CHF recent admission to [facility], COPD with a history of CAD last myocardial infarction 2017. Patient is hemodynamically stable at time of evaluation, complaining of active shortness breath, intermittent chest pains of past several days. Oxygen saturations greater than 92% on room air. (DAI DOBSON DO) ED Course At time of signout, laboratory work, imaging results, clinical reassessment after IV Lasix and DuoNeb's administration. Up-to-date at 1952, I reassessed patient times, he continues to feel better, his lungs do have crackles in the bases with there is no wheezing present. He likely has underlying emphysema given his extensive pack year history of smoking. His comorbidities, his increased BNP, and his oxygen saturation around 90%, I did o ffer him admission but at this time the patient states he is feeling much better her prefer to go home. I have encouraged him to double up his dose of furosemide to 40 mg for the next 2 days. I will send him home with an inhaler, potassium supplementation, and insists on primary care follow-up and return return to the ER if his symptoms worsen or change. Re-evaluation Patient was feeling improved, see above documentation. Decision to Disposition Date: Sep 02, 2018 Decision to Disposition Time: 19:53 (RONNA HINES DO) Depart Departure Latest Vital Signs Vital Signs Date Time Temp Pulse Resp B/P (MAP) Pulse Ox O2 Delivery O2 Flow Rate FiO2 09/02/18 19:15 70 85 09/02/18 19:00 107/82 (90) 09/02/18 17:51 22 09/02/18 17:51 Room Air 09/02/18 17:39 98.0 (RONNA HINES DO) Impression: Primary Impression: HFrEF (heart failure with reduced ejection fraction) Additional Impression: Dyspnea Condition: Improved Disposition: HOME OR SELF-CARE Referrals: RONNA WILEY MD (PCP) New Scripts Potassium Chloride (POTASSIUM CHLORIDE) 20 Meq Packet 20 MEQ PO QDAY for 7 Days, #10 PACKET Prov: RONNA HINES DO 09/02/18 Albuterol Sulfate 90 Mcg/Act (PROAIR HFA 90 MCG/ACT) 8.5 Gm Hfa.aer.ad 1-2 PUFF IH 3-4XD PRN for SHORTNESS OF BREATH for 28 Days, #1 INHALER 1 Refill Prov: RONNA HINES DO 09/02/18 Departure Forms: ER Transition Record, Medications Reconciliation, Patient Portal Information Patient Instructions: Dyspnea (ED), Heart Failure (DC) Additional Instructions: As we discussed, please take 40 mg of your Lasix for the next 2 days. Take the potassium supplements for the next few days as well. I did offer you admission but after your improvement and after our discussion risk and benefits, he would like to go home at this time. Please follow-up with your regular doctor as soon as possible. Use the inhaler as needed. Problem Qualifiers Primary Impression: HFrEF (heart failure with reduced ejection fraction) Heart failure chronicity: acute on chronic Qualified Codes: I50.23 - Acute on chronic systolic (congestive) heart failure Additional Impression: Dyspnea Dyspnea type: shortness of breath Qualified Codes: R06.02 - Shortness of breath DAI DOBSON DO Sep 02, 2018 17:34 RONNA HINES DO Sep 02, 2018 18:33
[2018-09-02] MEDS ORDERED: GABA-547 (17:44)
[2018-09-02] MEDS ORDERED: DEXAMETHASONE SOD PHOS 10MG/ML IVP ONE (17:45)
[2018-09-02] MEDS ORDERED: ALBUTEROL/IPRATROPIUM 3 ML NEB NEB ONE (17:45)
[2018-09-02 17:56] LABS: PLATELET COUNT, AUTOMATED 183 K/uL (150-450)
--- NOTE | 2018-09-02 17:58 | EKG ---
FACILITY: [facility] PATIENT NAME: REHAN SÁNCHEZ : [id number] MR: [id number] V: [id number] EXAM DATE: ORDERING PHYSICIAN: DAI BALDWIN TECHNOLOGIST: JAMES Jolly Reason : SOB Blood Pressure : / mmHG Vent. Rate : 070 BPM Atrial Rate : 070 BPM P-R Int : 158 ms QRS Dur : 118 ms QT Int : 402 ms P-R-T Axes : 076 -78 085 degrees QTc Int : 434 ms Normal sinus rhythm Left anterior fascicular block Abnormal ECG When compared with ECG of 22-AUG-2018 10:21, Bigeminal PVC no longer present Confirmed by Delbert Abdullahi ([id number]) on 09/03/2018 12:40:24 AM Referred By: DENNY Confirmed By:Delbert Pinto
[2018-09-02 18:22] LABS: INR 1.73
[2018-09-02] MEDS ORDERED: FUROSEMIDE 40 MG/4 ML VIAL IVP ONE (18:25)
--- NOTE | 2018-09-02 18:32 | RADIOLOGY IMAGING REPORT ---
FACILITY: [facility] [place] PATIENT NAME: Franklin Christina : 1950 MR: [id number] V: [id number] EXAM DATE: ORDERING PHYSICIAN: DAI BALDWIN TECHNOLOGIST: Location: [facility] [place] Patient: Franklin Christina : 1950 Visit/Account:[id number] Date of Sevice: 09/02/2018 CHEST SINGLE AP COMPARISONS: Views of the chest dated August 22, 2018 ADDITIONAL PERTINENT HISTORY: Respiratory distress FINDINGS: Cardiomediastinal silhouette: Negative. Pulmonary vasculature: Negative. Lung mireles: Negative. Pleural spaces: Negative. Osseous structures: Negative. Surrounding soft tissues: Negative. IMPRESSION: No evidence of acute cardiopulmonary disease. Report Dictated By: Bay Chang MD at 09/02/2018 6:23 PM Report E-Signed By: Bay Chang MD at 09/02/2018 6:24 PM [id number]
[2018-09-02 20:00] VITALS: BP 105/80
[2018-09-02] MEDS ORDERED: POTA20PA25 PO (20:00)
[2018-09-02] MEDS ORDERED: ALBU8.5H IH (20:00)
== END 2018-09-02 20:07 | disposition home or self-care (01) ==
LOC: ER 17:38
DX: I50.23 Acute on chronic systolic (congestive) heart failure (principal); R06.02 Shortness of breath; F17.210 Nicotine dependence, cigarettes, uncomplicated
CPT/HCPCS: 82803; 83880; 84484; 85025; 85610; 85730; 93005; 94640; 96374; 96375; 99284; J1100; J1940; J7620; 71045; 82040; 82247; 82310; 82374; 82435; 82565; 82947; 84075; 84132; 84155; 84295; 84450; 84460; 84520

== ENCOUNTER 2018-09-04 13:29 | Emergency (ER) | payer MEDICARE ==
[~2018-09-04 13:29] MED LIST changes: +ALBU8.5H IH; +GABA-547; +POTA20PA25 PO
--- NOTE | 2018-09-04 13:42 | ER Report ---
History and Physical Time Seen By MD: 13:39 Hx. of Stated Complaint: SHORTNESS OF BREATH. SEEN HERE ON SUNDAY FOR SAME THING HPI/ROS CHIEF COMPLAINT: Shortness of breath, bilateral pitting lower edema HISTORY OF PRESENT ILLNESS: 68-year-old male patient presents to emergency room with complaint of shortness of breath. Patient states he has a history of congestive heart failure, he was seen for this on Sunday. States that he got feeling better went home, he was instructed to increase his Lasix to 40 mg twice a day. He states that he has been taking that as rectum, however over the past couple days he's had worsening shortness of breath. He states he denies having any fevers, chills, nausea, vomiting or diarrhea. Patient states that he just had a hard time with his breathing. He states he getting up he feels better, however any systemic lays down it feels worse. REVIEW OF SYSTEMS: Respiratory: As noted above Cardiovascular: No chest pain, no palpitations. Gastrointestinal: No vomiting, no abdominal pain. Musculoskeletal: No back pain. Allergies: Coded Allergies: Penicillins (Verified Allergy, Severe, SWELLING, 10/09/16) codeine (Verified Allergy, Intermediate, HALLUCINATIONS, 10/09/16) Home Meds Active Scripts Potassium Chloride (POTASSIUM CHLORIDE) 20 Meq Packet, 20 MEQ PO QDAY for 7 Days, #10 PACKET Prov:RONNA HINES DO 09/02/18 Albuterol Sulfate 90 Mcg/Act (PROAIR HFA 90 MCG/ACT) 8.5 Gm Hfa.aer.ad, 1-2 PUFF IH 3-4XD PRN for SHORTNESS OF BREATH for 28 Days, #1 INHALER 1 Refill Prov:RONNA HINES DO 09/02/18 Reported Medications Gabapentin (GABAPENTIN) 100 Mg Capsule, TID 09/02/18 Metoprolol Tartrate (METOPROLOL TARTRATE) 25 Mg Tablet, 12.5 MG PO BID, TAB 08/22/18 Aspirin (ASPIR 81) 81 Mg Tablet.dr, 81 MG PO QDAY, TAB 08/22/18 Warfarin Sodium (WARFARIN SODIUM) 5 Mg Tablet, 2.5 MG PO ,,,,Sa, TAB 08/22/18 Warfarin Sodium (WARFARIN SODIUM) 5 Mg Tablet, 5 MG PO Mon, Sun, TAB 08/22/18 Rosuvastatin Calcium (CRESTOR) 20 Mg Tablet, 20 MG PO QDAY 08/22/18 Ondansetron 4 Mg Odt (ONDANSETRON 4 MG ODT) 4 Mg Tab.rapdis, 4 MG ASDIRECTED PRN 08/22/18 Clopidogrel Bisulfate (CLOPIDOGREL) 75 Mg Tablet, 75 MG PO QDAY 08/22/18 Furosemide (FUROSEMIDE) 20 Mg Tablet, 20 MG PO QDAY 08/22/18 Levothyroxine Sodium (LEVOTHYROXINE SODIUM) 88 Mcg Tablet, 88 MCG PO QDAY 08/22/18 Past Medical/Surgical History Patient has a past medical history of [place], hyperlipidemia, fractures of the back, hip and leg, hypothyroidism. Patient has a surgical history of coronary stent, appendectomy, cholecystectomy, back fusion, right hip, tonsillectomy. Reviewed Nurses Notes: Yes Hx Smoking: No Smoking Status: Former Smoker Hx Substance Use Disorder: No Hx Alcohol Use: No Constitutional Vital Sign - Last 24 Hours 09/04/18 09/04/18 09/04/18 09/04/18 13:30 13:47 14:00 14:00 Pulse 99 74 Resp 16 B/P (MAP) 93/70 (78) 92/69 (77) Pulse Ox 90 97 O2 Delivery Nasal Cannula O2 Flow Rate 1.5 09/04/18 09/04/18 09/04/18 09/04/18 14:00 14:07 14:07 14:30 Pulse 83 76 82 Resp 21 18 16 B/P (MAP) 88/68 (75) 88/60 (69) Pulse Ox 96 93 88 O2 Delivery Nasal Cannula O2 Flow Rate 0.5 09/04/18 09/04/18 09/04/18 09/04/18 15:00 15:30 15:40 16:00 Pulse 70 81 66 Resp 0 26 16 B/P (MAP) 101/77 (85) 86/60 (69) 101/76 (84) 106/75 (85) Pulse Ox 96 86 93 Physical Exam General Appearance: The patient is alert, has no immediate need for airway protection and no current signs of toxicity. Respiratory: Chest is non tender, lungs are clear to auscultation. Cardiac: regular rate and rhythm Gastrointestinal: Abdomen is soft and non tender, no masses, bowel sounds normal. Musculoskeletal: Neck: Neck is supple and non tender. Extremities have full range of motion and are non tender. Patient has 3+ pitting edema to lower extremities Skin: No rashes or lesions. DIFFERENTIAL DIAGNOSIS: After history and physical exam differential diagnosis was considered for shortness of breath including but not limited to pulmonary infectious process, COPD, asthma, pulmonary embolus and congestive heart failure. Medical Decision Making Data Points Result Diagram: 09/04/18 1359 09/04/18 1359 Laboratory Hematology Test 09/04/18 13:59 White Blood Count 12.2 k/uL (4.5-11.0) H Red Blood Count 3.77 M/uL (4.00-5.60) L Hemoglobin 10.8 g/dL (14.0-18.0) L Hematocrit 33.8 % (42.0-52.0) L Mean Corpuscular Volume 89.7 fL (80.0-96.0) Mean Corpuscular Hemoglobin 28.7 pg (26.0-33.0) Mean Corpuscular Hemoglobin Concent 32.0 g/dL (32.0-36.0) Red Cell Distribution Width 18.4 % (11.5-14.5) H Platelet Count 201 K/uL (150-450) Mean Platelet Volume 9.8 fL (7.2-11.1) Neutrophils (%) (Auto) 85.0 % (39.4-72.5) H Lymphocytes (%) (Auto) 8.6 % (17.6-49.6) L Monocytes (%) (Auto) 5.7 % (4.1-12.4) Eosinophils (%) (Auto) 0.0 % (0.4-6.7) L Basophils (%) (Auto) 0.7 % (0.3-1.4) Nucleated RBC Relative Count (auto) 0.1 /100WBC Neutrophils # (Auto) 10.4 K/uL (2.0-7.4) H Lymphocytes # (Auto) 1.0 K/uL (1.3-3.6) L Monocytes # (Auto) 0.7 K/uL (0.3-1.0) Eosinophils # (Auto) 0.0 K/uL (0.0-0.5) Basophils # (Auto) 0.1 K/uL (0.0-0.1) Nucleated RBC Absolute Count (auto) 0.01 K/uL Peripheral Blood Smear No Y/N Chemistry Test 09/04/18 13:59 Sodium Level 138 mmol/L (137-145) Potassium Level 3.7 mmol/L (3.5-5.0) Chloride Level 102 mmol/L (98-107) Carbon Dioxide Level 26 mmol/L (22-30) Blood Urea Nitrogen 22 mg/dl (9-21) Creatinine 1.00 mg/dl (0.66-1.25) Glomerular Filtration Rate Calc > 60.0 Random Glucose 123 mg/dl (75-110) Calcium Level 8.9 mg/dl (8.4-10.2) Total Bilirubin 1.5 mg/dl (0.2-1.3) Aspartate Amino Transf (AST/SGOT) 43 U/L (0-35) Alanine Aminotransferase (ALT/SGPT) 129 U/L (0-56) Alkaline Phosphatase 94 U/L (0-126) Troponin I 0.030 ng/ml B-Type Natriuretic Peptide 2590 pg/ml (0-100) Total Protein 6.3 g/dl (6.3-8.2) Albumin 3.3 g/dl (3.5-5.0) EKG/Imaging Imaging Chest with lateral, two views. HISTORY: Shortness of breath, former smoker. COMPARISON: Chest radiograph 09/02/2018, CT scan 10/09/2016. Borderline cardiomegaly is unchanged. The aortic knob is calcified. Pulmonary vessels are mildly engorged. Interstitial markings are mildly thickened bilaterally. The lungs are voluminous. Minimal blunting of the right lateral costophrenic sulcus is unchanged. The pleural surfaces are otherwise unremarkable. A moderate to severe mid thoracic compression fracture is unchanged. Chronic deformities are present in the clavicles. A coronary artery stent is present along the heart. IMPRESSION: Borderline cardiomegaly and mild pulmonary vascular engorgement without angel luis congestive heart failure. COPD. Report Dictated By: Jun Ayers MD at 09/04/2018 2:33 PM Report E-Signed By: Jun Ayers MD at 09/04/2018 2:38 PM ED Course/Re-evaluation ED Course Patient was admitted on exam room, history and physical were obtained. Differential diagnoses were considered. On examination lungs were coarse in the upper lobes, heart was regular, abdomen soft nontender. An IV was started, a CBC, CMP, BNP, troponin, EKG, chest x-ray were done. The lab results were unremarkable. EKG showed a sinus rhythm with frequent PVCs. Chest x-ray showed vascular engorgement without failure. BNP was 2500. I discussed case with Dr. Rodríguez, hospitalist, he felt that patient should be on oxygen and that will improve his shortness of breath. Patient does have oxygen at home and she's not currently using. Also would like to have the patient follow-up with his primary care provider on Sunday. I discussed with the patient verbalized understanding and agreement with plan. We will give him a prescription for oxygen to use 24 7 and have him continue with his increased dose of Lasix, 40 mg daily. Decision to Disposition Date: Sep 04, 2018 Decision to Disposition Time: 15:52 Depart Departure Latest Vital Signs Vital Signs Date Time Temp Pulse Resp B/P (MAP) Pulse Ox O2 Delivery O2 Flow Rate FiO2 09/04/18 16:00 66 16 106/75 (85) 93 09/04/18 14:07 Nasal Cannula 0.5 Impression: Primary Impression: HFrEF (heart failure with reduced ejection fraction) Condition: Improved Disposition: HOME OR SELF-CARE Referrals: RONNA WILEY MD (PCP) Departure Forms: ER Transition Record, Home Oxygen, Nebulizer RX, Home Oxygen Company Chosen by Patient: [employer] Medical Equipment-Oxygen: Oxygen Concentrator, Portable Oxygen Gas Reason for Use/Diagnosis: CHF Start Date of the Order: Sep 04, 2018 Dosage or Concentration (if applicable) - LPM: 2 Route of Administration (if applicable): Nasal Cannula Frequency of Use: Continuous Duration Home O2 Required: 1 Duration Units: Months Room Air Oxygen Saturation: 86 ER Prescribing Physician's Name: Stevo Ramirez NPIsamar Numbers for Local ER MDs: James [id number] Medications Reconciliation, Patient Portal Information Patient Instructions: Heart Failure (ED) Additional Instructions: Limit fluid intake. Follow up with Dr. Wiley on Sunday. Wear your oxygen all of the time. Continue to increase your Lasix (Furosemide) to 40mg daily. Return to the ER if condition worsens. Problem Qualifiers Primary Impression: HFrEF (heart failure with reduced ejection fraction) Heart failure chronicity: acute on chronic Qualified Codes: I50.23 - Acute on chronic systolic (congestive) heart failure STEVO RAMIREZ Sep 04, 2018 13:42
[2018-09-04] MEDS ORDERED: ALBUTEROL/IPRATROPIUM 3 ML NEB NEB ONE (13:50)
[2018-09-04] MEDS ORDERED: FUROSEMIDE 40 MG/4 ML VIAL IVP ONE (13:50)
[2018-09-04 14:18] LABS: PLATELET COUNT, AUTOMATED 201 K/uL (150-450)
--- NOTE | 2018-09-04 14:45 | RADIOLOGY IMAGING REPORT ---
FACILITY: [facility] - [place] PATIENT NAME: Franklin Christina : 1950 MR: [id number] V: [id number] EXAM DATE: ORDERING PHYSICIAN: EVERTON WINKLER TECHNOLOGIST: Location: [facility] Patient: Franklin Christina : 1950 Visit/Account:[id number] Date of Sevice: 09/04/2018 Chest with lateral, two views. HISTORY: Shortness of breath, former smoker. COMPARISON: Chest radiograph 09/02/2018, CT scan 10/09/2016. Borderline cardiomegaly is unchanged. The aortic knob is calcified. Pulmonary vessels are mildly en gorged. Interstitial markings are mildly thickened bilaterally. The lungs are voluminous. Minimal blunting of the right lateral costophrenic sulcus is unchanged. The pleural surfaces are otherwise u nremarkable. A moderate to severe mid thoracic compression fracture is unchanged. Chronic deformiti es are present in the clavicles. A coronary artery stent is present along the heart. IMPRESSION: Borderline cardiomegaly and mild pulmonary vascular engorgement without angel luis congestive heart failur e. COPD. Report Dictated By: Jun Ayers MD at 09/04/2018 2:33 PM Report E-Signed By: Jun Ayers MD at 09/04/2018 2:38 PM WSN:[id number]
--- NOTE | 2018-09-04 14:58 | EKG ---
FACILITY: [facility] - [place] PATIENT NAME: REHAN SÁNCHEZ : [id number] MR: [id number] V: [id number] EXAM DATE: ORDERING PHYSICIAN: EVERTON WINKLER TECHNOLOGIST: ZOEY Test Reason : SOB Blood Pressure : / mmHG Vent. Rate : 076 BPM Atrial Rate : 076 BPM P-R Int : 158 ms QRS Dur : 112 ms QT Int : 392 ms P-R-T Axes : 071 -85 081 degrees QTc Int : 441 ms Sinus rhythm with frequent premature ventricular complexes Left axis Nonspecific interventricular conduction delay Abnormal ECG Confirmed by MAUREEN CALVILLO ([id number]) on 09/04/2018 5:12:40 PM Referred By: SUSANA Confirmed By:MAUREEN CALVILLO
[2018-09-04 16:00] VITALS: BP 106/75
== END 2018-09-04 17:09 | disposition home or self-care (01) ==
LOC: ER 13:44
DX: I50.23 Acute on chronic systolic (congestive) heart failure (principal)
CPT/HCPCS: 71046; 83880; 84484; 85025; 93005; 94640; 96374; 99284; J1940; J7620; 82040; 82247; 82310; 82374; 82435; 82565; 82947; 84075; 84132; 84155; 84295; 84450; 84460; 84520